=== PATIENT | female | born 1955 | race Two or more races ===

== ENCOUNTER 2019-09-10 19:08 | Emergency (ER) | payer OTHER ==
[~2019-09-10] VITALS: Ht 162.6 cm; Wt 73.9 kg
[2019-09-10] MEDS ORDERED: LOSARTAN (20:11)
[2019-09-10] MEDS ORDERED: NORVASC (20:11)
[2019-09-11] MEDS ORDERED: OMEPRAZOLE-BIC1 EAC1 PO (04:16)
[2019-09-11] MEDS ORDERED: ZOFRAN4 MG PO (04:18)
== END 2019-09-11 04:31 ==
LOC: ER 19:08
DX: R10.11 Right upper quadrant pain (principal); K29.60 Other gastritis without bleeding

== ENCOUNTER 2020-06-23 10:11 | Emergency (ER) | payer OTHER ==
[~2020-06-23] VITALS: Ht 160 cm; Wt 68.0 kg
[~2020-06-23 10:11] MED LIST: LOSARTAN; NORVASC; OMEPRAZOLE-BIC1 EAC1 PO; ZOFRAN4 MG PO
== END 2020-06-23 14:18 | disposition home or self-care (01) ==
LOC: ER 10:11
DX: R11.2 Nausea with vomiting, unspecified (principal); Z20.828 Contact with and (suspected) exposure to other viral communicable diseases